=== PATIENT | female | born 1975 | race African-American/Black ===

== ENCOUNTER 2025-01-04 03:12 | Emergency (ER) | payer BC ==
[~2025-01-04] VITALS: Ht 175.3 cm; Wt 69.9 kg
[2025-01-04] MEDS ORDERED: KETOROLAC TROMETHAMINE 15 MG/ML VIAL ONE (03:33)
[2025-01-04] MEDS ORDERED: METOCLOPRAMIDE HCL 10 MG/2 ML VIAL ONE (03:33)
[2025-01-04 03:45] LABS: PLATELET COUNT (AUTO) 272 K/uL (150-450); RED BLOOD CELL COUNT(AUTO) 4.30 MIL/uL (4.0-5.2); RED CELL DISTRIBUTION WIDTH 19.6 % (11.5-15.0); WHITE BLOOD COUNT (AUTO) 8.2 K/uL (4.3-11.0)
[2025-01-04] MEDS: METOCLOPRAMIDE HCL 10 MG/2 ML VIAL IV ONE (03:52)
[2025-01-04] MEDS: IV NS 0.9% 1,000 ML BAG IV ONE (03:52)
[2025-01-04 03:57] LABS: CALCIUM, SERUM 8.7 mg/dL (8.5-10.1); CREATININE 0.9 mg/dL (0.6-1.3); SODIUM SERUM 139.0 mmol/L (136-145); UREA NITROGEN, BLOOD 14.0 mg/dL (7-18)
[2025-01-04 03:59] LABS: ASPARTATE AMINOTRANSFERASE 31.0 U/L (15-37); TOTAL PROTEIN, SERUM 7.0 g/dL (6.4-8.2)
[2025-01-04 04:36] LABS: APPEARANCE,URINE CLEAR (CLEAR); BLOOD, URINE 3+ Ery/uL (NEGATIVE); LEUKOCYTE ESTERASE ,URINE NEGATIVE (NEGATIVE); NITRITE, URINE NEGATIVE (NEGATIVE); UGLUCOSE NEGATIVE (NEGATIVE)
[2025-01-04] MEDS: KETOROLAC TROMETHAMINE 15 MG/ML VIAL IV ONE (05:00)
[2025-01-04 05:05] LABS: ADD URINE CULTURE NO; SQUAMOUS EPITHELIAL CELL,UR 0-2 /HPF (None Seen)
[2025-01-04] MEDS ORDERED: PANT40TA49 PO (06:01)
[2025-01-04] MEDS ORDERED: KETO10TA2 PO (06:01)
[2025-01-04 07:31] VITALS: BP 100/65; TEMP 98.3; O2SAT 97
== END 2025-01-04 07:32 | disposition home or self-care (01) ==
LOC: ER 03:24
DX: R10.9 Unspecified abdominal pain (principal)
CPT/HCPCS: 99285; 74176; 96374; 76705; 96361; 96375; 85025; 84703; 81001; 36415; 80053; J1885; J2765; J7030 ×2